=== PATIENT | female | born 1990 | race Caucasian/White ===

== ENCOUNTER → 2021-04-16 | Outpatient (CLI) | payer OTHER ==
[~2021-04-16] MED LIST: BENTYL 10MG CAP10 MG PO; CELEBREX200 MG PO; COLACE 100MG C100 MG PO; COLACE100 MG PO; FLEXERIL 10 MG10 MG PO; IBUPROFEN600 MG PO; NAPROSYN500 MG PO; NORCO 5-325 TA1 EACH PO; ZOFRAN 4 MG TAB4 MG PO
[2021-04-16 16:53] LABS: HEMOGLOBIN 14.1 gm/dl (12.3-15.3); RED BLOOD COUNT 4.67 M/UL (4.00-5.10); WHITE BLOOD COUNT 11.2 K/UL (4.5-11.0)
[2021-04-16 17:30] LABS: BUN/CREATININE RATIO 10 (0-10)
[2021-04-18 10:13] LABS: SARS COV-2 IGG AB Positive (Negative)
[2021-04-18 16:09] LABS: SARS COV-2 IGM AB Negative (Negative)
[2021-04-19 22:11] LABS: SARS COV-2 IGA AB Negative (Negative)
== END ==
LOC: LAB 16:00
PROVIDERS: Nurse Practitioner Family
DX: R07.9 Chest pain, unspecified (principal); Z20.822 Contact with and (suspected) exposure to COVID-19
CPT/HCPCS: 71045; 80053; 80061; 82550; 82553; 82728; 83036; 83540; 83550; 84443; 84484; 85025; 85379; 86140; 86769; 87086; 93005

== ENCOUNTER → 2021-04-30 | Outpatient (CLI) | payer OTHER | LOC: NM 09:00 | DX: R11.0 Nausea (principal); K30 Functional dyspepsia | CPT/HCPCS: 78264; 84703; A9541 ==